=== PATIENT | male | born 1940 | race Caucasian/White ===

== ENCOUNTER → 2021-01-29 | Outpatient (CLI) | payer MEDICARE, OTHER ==
[~2021-01-29] MED LIST: ASCO100019 PO; ATOR20TA37 PO; CHOL10003 PO; L.AC1CAP6 PO; MULT-717 PO; SAW450CA7 PO; TURM538C PO; UBID100C41 PO; ZINC50TA10 PO
[2021-01-29 15:27] LABS: BASOPHILS % (AUTO) 1 % (0-1); EOSINOPHILS % (AUTO) 1 % (1-7); HCT (SEDRATE) 39.4 % (39.2-51.8); LYMPHOCYTES % (AUTO) 34 % (22-44); MEAN CORPUSCULAR HEMOGLOBIN 29.8 pg (27.5-34.5); MEAN CORPUSCULAR HGB CONC 33.6 g/dL (33.2-36.2); MEAN PLATELET VOLUME 8.6 fL (7.4-10.4); MONOCYTES % (AUTO) 10 % (2-9); NEUTROPHILS % (AUTO) 55 % (42-75); PLATELET COUNT 180 x10^3/uL (130-400); RED BLOOD COUNT 4.47 x10^6/uL (4.38-5.82)
[2021-01-29 15:38] LABS: ANION GAP 5 mmol/L (5-15); BILIRUBIN,TOTAL 0.4 mg/dL (0.2-1.0); CALCIUM 8.7 mg/dL (8.5-10.1); CHLORIDE 104 mmol/L (98-107); CREATININE 0.76 mg/dL (0.7-1.3)
[2021-01-29 15:39] LABS: ALANINE AMINOTRANSFERASE 35 U/L (12-78); ALBUMIN 3.6 g/dL (3.4-5.0); ALKALINE PHOSPHATASE 59 U/L (45-117); TOTAL PROTEIN 7.1 g/dL (6.4-8.2)
[2021-01-29 15:42] LABS: INTERNATIONAL NORMALIZED RATIO 0.92 (0.93-1.1); PROTHROMBIN TIME 9.9 Seconds (9.6-11.5)
== END | disposition home or self-care (01) ==
LOC: STAR 13:52
PROVIDERS: ATTEND Orthopaedic Surgery Orthopaedic Surgery of the Spine
DX: Z01.818 Encounter for other preprocedural examination (principal); M48.062 Spinal stenosis, lumbar region with neurogenic claudication; M54.16 Radiculopathy, lumbar region
CPT/HCPCS: 36415; 80053; 80074; 85025; 85610; 85651; 85730; 87806; G0475

== ENCOUNTER 2021-02-12 05:24 | Inpatient (IN) | payer MEDICARE ==
[~2021-02-12] VITALS: Ht 180.3 cm; Wt 70.9 kg
[2021-02-12] MEDS ORDERED: CELE200C PO (06:15)
[2021-02-12] MEDS ORDERED: GABA600T7 PO (06:15)
[2021-02-12] MEDS ORDERED: CHLORHEXIDINE 15 ML UDC ONE (06:29)
[2021-02-12] MEDS ORDERED: CHLORHEXIDINE 15 ML UDC PO ONE (06:30)
[2021-02-12] MEDS ORDERED: LACTATED RINGERS 1,000 ML IV SCH (06:30)
[2021-02-12] MEDS ORDERED: LIDOCAINE 1%, 20ML ONE (06:57)
[2021-02-12] MEDS ORDERED: EPINEPHRINE 1 MG/ML, 1ML ONE (06:57)
[2021-02-12] MEDS ORDERED: BUPIVACAINE/PF 0.5% ONE (06:57)
[2021-02-12] MEDS ORDERED: VANCOMYCIN 1,000 MG ONE (06:57)
[2021-02-12] MEDS ORDERED: FENTANYL PF 250 MCG/5ML ONE ×2 (07:02→10:20)
[2021-02-12] MEDS ORDERED: PROPOFOL 50 ML ONE ×3 (07:17→12:02)
[2021-02-12] MEDS ORDERED: hydrALAzine 20 MG/ML, 1ML IV PRN (07:30)
[2021-02-12] MEDS ORDERED: OXYcodone 5 MG/5 ML ORAL.SOL UDC PO PRN (07:30)
[2021-02-12] MEDS ORDERED: LABETALOL 5MG/ML, 20ML IV PRN ×2 (07:30→13:00)
[2021-02-12] MEDS ORDERED: ACETAMINOPHEN 325 MG TABLET PO PRN (07:30)
[2021-02-12] MEDS ORDERED: ONDANSETRON 2MG/ML, 2ML IVPush PRN (07:30)
[2021-02-12] MEDS ORDERED: METHOCARBAMOL 1,000 MG in DEXTROSE 5% 100 ML IV PRN (07:30)
[2021-02-12] MEDS ORDERED: EPHEDRINE 50 MG/ML, 1ML IVPush PRN (07:30)
[2021-02-12] MEDS ORDERED: LORazepam 2 MG/ML, 1ML IVPush PRN (07:30)
[2021-02-12] MEDS ORDERED: HYDROmorphone 1 MG/ML, 1ML INJ IVPush PRN (07:30)
[2021-02-12] MEDS ORDERED: PROMETHAZINE 25 MG/ML, 1ML IVPush PRN (07:30)
[2021-02-12] MEDS ORDERED: FENTANYL PF 100 MCG/2ML IV PRN (07:30)
[2021-02-12] MEDS ORDERED: PROPOFOL 10 MG/ML, 20ML ONE (07:45)
[2021-02-12] MEDS ORDERED: DEXAMETHASONE 4 MG/ML, 1ML ONE (07:45)
[2021-02-12] MEDS ORDERED: ROCURONIUM 10 MG/ML,10ML ONE (07:45)
[2021-02-12] MEDS ORDERED: SUCCINYLCHOLINE 20 MG/ML, 10ML ONE (07:45)
[2021-02-12] MEDS ORDERED: GLYCOPYRROLATE 0.2MG/1ML, 5ML ONE (07:45)
[2021-02-12] MEDS ORDERED: CEFAZOLIN 1,000 MG ONE (07:45)
[2021-02-12] MEDS ORDERED: ONDANSETRON 2MG/ML, 2ML ONE (07:45)
[2021-02-12] MEDS ORDERED: NEOSTIGMINE 1 MG/ML, 10ML ONE (07:45)
[2021-02-12] MEDS ORDERED: morphine SULFATE/PF 0.5 MG/ML, 10ML ONE ×2 (09:10→10:05)
[2021-02-12] MEDS ORDERED: FENTANYL PF 100 MCG/2ML ONE ×2 (09:10→10:05)
[2021-02-12] MEDS ORDERED: DIPHENHYDRAMINE 50 MG/ML, 1ML IVPush PRN (13:00)
[2021-02-12] MEDS ORDERED: DIAZEPAM 5 MG/ML, 2ML IV PRN (13:00)
[2021-02-12] MEDS ORDERED: DIAZEPAM 5 MG/ML, 2ML IVPush PRN (13:00)
[2021-02-12] MEDS ORDERED: ONDANSETRON 2MG/ML, 2ML IV PRN (13:00)
[2021-02-12] MEDS ORDERED: DIAZEPAM 5 MG TABLET PO PRN (13:00)
[2021-02-12] MEDS ORDERED: OXYcodone IR 5MG TABLET PO PRN (14:00)
[2021-02-12] MEDS: D5%-0.9% NACL+KCL 20MEQ 1,000 ML IV SCH ×2 (14:27→22:48)
[2021-02-12] MEDS: NICOTINE 21 MG/24 HR PATCH.TD24 TD SCH (17:29)
[2021-02-12] MEDS: CEFAZOLIN PMX 1GM/50ML 50 ML IVPB SCH ×2 (17:29→23:43)
[2021-02-12] MEDS: GABAPENTIN 300 MG CAPSULE PO SCH ×2 (17:29→20:49)
[2021-02-12 18:35] VITALS: BP 93/54
[2021-02-13] VITALS: BP 94/55
[2021-02-13] MEDS: CEFAZOLIN PMX 1GM/50ML 50 ML IVPB SCH (00:49)
[2021-02-13 04:14] VITALS: BP 90/41
[2021-02-13 07:02] VITALS: BP 94/55
[2021-02-13] MEDS: D5%-0.9% NACL+KCL 20MEQ 1,000 ML IV SCH ×2 (09:25→16:00)
[2021-02-13] MEDS: SENNA/DOCUSATE TABLET PO SCH (09:25)
[2021-02-13] MEDS: GABAPENTIN 300 MG CAPSULE PO SCH ×3 (09:25→21:50)
[2021-02-13 12:38] VITALS: BP 98/62
[2021-02-13] MEDS: NICOTINE 21 MG/24 HR PATCH.TD24 TD SCH (17:30)
[2021-02-13 19:57] VITALS: BP 106/63
[2021-02-13] MEDS ORDERED: ACETAMINOPHEN 500 MG TABLET PO PRN (20:00)
[2021-02-13] MEDS: TAMSULOSIN 0.4 MG CAP.ER.24H PO SCH (21:50)
[2021-02-14 00:36] VITALS: BP 100/62
[2021-02-14 02:13] VITALS: BP 108/52
[2021-02-14] MEDS: D5%-0.9% NACL+KCL 20MEQ 1,000 ML IV SCH (05:53)
[2021-02-14 06:54] VITALS: BP 92/55
[2021-02-14] MEDS: NICOTINE 21 MG/24 HR PATCH.TD24 TD SCH (09:00)
[2021-02-14] MEDS: SENNA/DOCUSATE TABLET PO SCH (12:23)
[2021-02-14] MEDS: TAMSULOSIN 0.4 MG CAP.ER.24H PO SCH (12:23)
[2021-02-14] MEDS: GABAPENTIN 300 MG CAPSULE PO SCH (12:23)
[2021-02-14 13:32] VITALS: BP 107/64
[2021-02-19] MEDS ORDERED: ACETAMINOPHEN 325 MG TABLET ONE (11:39)
== END 2021-02-14 15:18 | disposition home or self-care (01) | DRG 517 ==
LOC: OUT 05:24 → 4NW 12:10 → OUT 12:26 → 4NW 02-13 16:18 → 4NE 02-13 16:18
PROVIDERS: ADMIT Orthopaedic Surgery Orthopaedic Surgery of the Spine; ATTEND Orthopaedic Surgery Orthopaedic Surgery of the Spine
PROC: 01NR0ZZ Release Sacral Nerve, Open Approach (ICD-10-PCS; 2021-02-12)
PROC: 3E0S3GC Introduction of Other Therapeutic Substance into Epidural Space, Percutaneous Approach (ICD-10-PCS; 2021-02-12)
PROC: 01NB0ZZ Release Lumbar Nerve, Open Approach (ICD-10-PCS; principal; 2021-02-12 07:30)
DX: M48.062 Spinal stenosis, lumbar region with neurogenic claudication (principal); R33.9 Retention of urine, unspecified; M54.16 Radiculopathy, lumbar region
CPT/HCPCS: 36415; 72100; 86850; 86900; 88305; 88311; G0378; J0171; J0690; J1100; J2270; J2274; J2405; J2704; J2710; J3010; J3370; C1751; J0330; J3480; J7120